=== PATIENT | female | born 1930 | race Hispanic/Latino ===

== ENCOUNTER 2016-08-02 11:18 | Emergency (ER) | payer MEDICARE, BC ==
[2016-08-02 11:23] VITALS: BMI 32.3
[2016-08-02 11:24] VITALS: RESP 16; TEMP 98
--- NOTE | 2016-08-02 12:23 | ED PDOC ---
HPI: Skin/Bite Injury Time Seen by Provider: 08/02/16 12:15 Chief Complaint (Nursing): Abnormal Skin Integrity Chief Complaint (Provider): Cysts on Scalp History Per: Patient History/Exam Limitations: no limitations Onset/Duration Of Symptoms: Days ("a while") Location Of Injury: Right: Head (posterior temporal) Quality Of Symptoms: Draining Additional Complaint(s): Shanti Villatoro is an 86 year old female, with a past medical history inclusive of HTN, who presents to the ED on 08/02/16 for the evaluation of a draining cyst on her right posterior/temporal scalp that began draining serosanguinous fluid just prior to arrival. Patient states that she has had 2 cysts in this area for "a while" but that she has had no issues with them previously. Denies fever/chills. PMD: Aly Macdonald Past Medical History Reviewed: Historical Data, Nursing Documentation, Vital Signs Vital Signs: Last Vital Signs Temp 98 F 08/02/16 11:24 Pulse 96 H 08/02/16 11:24 Resp 16 08/02/16 11:24 BP 157/83 H 08/02/16 11:24 Pulse Ox 99 08/02/16 11:24 - Medical History PMH: Arthritis, HTN Denies: Chronic Kidney Disease - Surgical History Surgical History: No Surg Hx - Family History Family History: States: Unknown Family Hx - Social History Current smoker - smoking cessation education provided: No Alcohol: None Drugs: Denies - Home Medications Home Medications: Ambulatory Orders Medication Instructions Recorded Acetaminophen with Codeine 1 each PO Q6 PRN #10 tablet 10/04/15 [Tylenol with Codeine #3 Tablet] Amlodipine Besylate/Benazepril 1 tab PO DAILY 10/04/15 [Lotrel 5-20 mg Capsule] Enalapril Maleate [Vasotec] 10 mg PO DAILY 10/04/15 - Allergies Allergies/Adverse Reactions: Allergies Allergy/AdvReac Type Severity Reaction Status Date / Time No Known Allergies Allergy Verified 11/11/15 20:12 Review of Systems Constitutional: Negative for: Fever, Chills Skin: Positive for: Other (draining cyst on scalp) Physical Exam - Reviewed Nursing Documentation Reviewed: Yes Vital Signs Reviewed: Yes - Physical Exam Appears: Positive for: Non-toxic, No Acute Distress Head Exam: Positive for: ATRAUMATIC, NORMOCEPHALIC. Negative for: NORMAL INSPECTION (2.5cm mildly fluctuant cyst noted on right posterior/temporal scalp with small overlaying abrasion/scab, second 2.0cm indurated cyst noted inferiorly) Skin: Positive for: Normal Color, Warm, Dry Neurologic/Psych: Positive for: Alert, Oriented - ECG O2 Sat by Pulse Oximetry: 99 (RA) Pulse Ox Interpretation: Normal Medical Decision Making Medical Decision Makin:15 Initial Impression: cyst 18 gauge needle used to aspirate approximately 1cc of serosanguinous fluid from fluctuant cyst. Patient tolerated procedure well with no immediate complications. 12:27 Upon provider reevaluation patient is feeling better, is medically stable, and requires no further treatment in the ED at this time. Patient will be discharged home with Rx for Keflex. Counseling was provided and all questions were answered regarding diagnosis and need for follow up with either her PMD, with a wireless sales representative or with the referred surgeon for further evaluation and possible removal of cysts. There is agreement to discharge plan. Return if symptoms persist or worsen. Clinical Impression: cyst Scribe Attestation: Documented by Paula Ramirez, acting as a scribe for Rubia Styles PA-C. Provider Scribe Attestation: All medical record entries made by the Scribe were at my direction and personally dictated by me. I have reviewed the chart and agree that the record accurately reflects my personal performance of the history, physical exam, medical decision making, and the department course for this patient. I have also personally directed, reviewed, and agree with the discharge instructions and disposition. Disposition - Patient ED Disposition Is Patient to be Admitted: No Counseled Patient/Family Regarding: Diagnosis, Need For Followup, Rx Given - Disposition Disposition: Routine/Home Disposition Time: 12:27 Condition: STABLE
[2016-08-02 13:44] VITALS: BP 140/73; PULSE 78; O2SAT 98
== END 2016-08-02 13:43 | disposition home or self-care (01) ==
LOC: H.ER 11:18
DX: L72.3 Sebaceous cyst (principal)